=== PATIENT | female | born 2000 | race Caucasian/White ===

== ENCOUNTER 2022-10-08 12:22 | Outpatient (CLI) | payer BC ==
[2022-10-08 14:01] LABS: Hemoglobin 12.9 g/dL (12.0-15.5); Mean Corpuscular HGB CONC 33.4 g/dL (32.0-36.0); Mean Corpuscular Hemoglobin 32.7 pg (27.0-33.0); Mean Platelet Volume 10.6 fl (7.4-10.4); Platelet Count 238 10x3/uL (150-450); RBC Distribution Width 11.6 % (11.5-14.5); Red Blood Cell (RBC) Count 3.94 10x6/uL (3.90-5.03); White Blood Cell (WBC) Count 4.6 10x3/uL (3.5-10.5)
[2022-10-08 14:21] LABS: Anion Gap 15 mmol/L (10-20); BUN (Urea Nitrogen) 10 mg/dL (7.0-18.7); Calc. Creatinine Clearance 0 mL/min (70-130); Calcium 10.3 mg/dL (7.8-10.44); Carbon Dioxide 23 mmol/L (22-29); Chloride 105 mmol/L (98-107); Estimated GFR 118; Glucose 87 mg/dL (70-105); Potassium 4.7 mmol/L (3.5-5.1); Sodium 138 mmol/L (136-145)
[2022-10-08 15:01] LABS: BHCG - Serum Negative (NEGATIVE)
[2022-10-08 15:02] LABS: Pregs Control Background? CLEAR/WHITE (CLR/WHITE); Pregs Control Bar Appear? YES (CONTROL BAR)
== END 2022-10-08 12:23 | disposition home or self-care (01) ==
LOC: CSHLAB 12:22
PROVIDERS: ATTEND Podiatrist Foot & Ankle Surgery
DX: Z01.812 Encounter for preprocedural laboratory examination (principal); M67.471 Ganglion, right ankle and foot
CPT/HCPCS: 80048; 84703; 85027

== ENCOUNTER 2022-10-13 11:46 | Day surgery (SDC) | payer BC ==
[2022-10-11 15:28] VITALS: BMI 23.0
[2022-10-13] MEDS ORDERED: Neomycin-Polymyxin 1 ML AMP ONE (12:08)
[2022-10-13] MEDS ORDERED: PROPOFOL 20 ML ONE (13:05)
[2022-10-13] MEDS ORDERED: Lidocaine 1% PF 5 ML VIAL ONE (13:05)
[2022-10-13] MEDS ORDERED: Fentanyl 100 MCG/2 ML VIAL ONE (13:08)
[2022-10-13] MEDS ORDERED: CEFAZOLIN 1 GM VIAL ONE (13:35)
[2022-10-13] MEDS ORDERED: Ondansetron PF 4 MG/2 ML Vial ONE (13:42)
[2022-10-13] MEDS ORDERED: Dexamethasone 20 MG/5 ML VIAL ONE (13:42)
[2022-10-13] MEDS ORDERED: Bupivacaine 0.5% 10 ML VIAL ONE (13:55)
== END 2022-10-13 16:00 | disposition home or self-care (01) ==
LOC: CSHSDC 11:46
PROVIDERS: ATTEND Podiatrist Foot & Ankle Surgery
PROC: 0LBV0ZZ Excision of Right Foot Tendon, Open Approach (ICD-10-PCS; principal; 2022-10-13)
DX: M67.471 Ganglion, right ankle and foot (principal); Z79.899 Other long term (current) drug therapy
CPT/HCPCS: 88304; J0690; J1100; J2405; J2704; J3010; J3490